=== PATIENT | male | born 1955 | race Caucasian/White ===

== ENCOUNTER 2021-10-31 13:48 | Outpatient (CLI) | payer BC, SELFPAY | END 2021-10-31 13:49 | disposition home or self-care (01) | LOC: ANHAUDIO 13:49 | PROVIDERS: PCP Internal Medicine; Visit Provider Otolaryngology | DX: H93.13 Tinnitus, bilateral (principal) | CPT/HCPCS: 92557; 92567 ==

== ENCOUNTER 2021-11-21 10:30 | Outpatient (RCR) | payer BC, SELFPAY | END 2021-12-31 15:47 | disposition home or self-care (01) | LOC: ANHDMC 10:30 | PROVIDERS: PCP Internal Medicine; Visit Provider Family Medicine | DX: E11.9 Type 2 diabetes mellitus without complications (principal); Z71.3 Dietary counseling and surveillance; Z71.89 Other specified counseling | CPT/HCPCS: 97804; 99199; G0108 ==

== ENCOUNTER → 2022-03-28 10:19 | Outpatient (CLI) | payer BC, SELFPAY ==
--- NOTE | ~2022-03-28 | XR_ITS ---
EXAMINATION: XR sacrum coccyx min 2V DATE: 03/28/2022 10:34 INDICATION: Sacrococcygeal disorders, not elsewhere classified. TECHNIQUE: 4 views of the sacrum and coccyx were obtained. COMPARISON: None. FINDINGS: Bone alignment is normal. No fracture. There is severe lumbar spondylosis. There is mild os teoarthritis of the sacroiliac joints. IMPRESSION: 1. Severe lumbar spondylosis. 2. Mild osteoarthritis of the sacroiliac joints. Reviewed, dictated and finalized at location A.
== END ==
PROVIDERS: PCP Family Medicine; Visit Provider Family Medicine
DX: M53.3 Sacrococcygeal disorders, not elsewhere classified (principal); M47.816 Spondylosis without myelopathy or radiculopathy, lumbar region
CPT/HCPCS: 72220

== ENCOUNTER 2022-04-03 08:00 | Outpatient (RCR) | payer BC, SELFPAY | END 2022-04-03 23:59 | disposition home or self-care (01) | LOC: ANHAUDIO 08:00 | PROVIDERS: PCP Family Medicine; Visit Provider Family Medicine | DX: Z46.1 Encounter for fitting and adjustment of hearing aid (principal) | CPT/HCPCS: 99199; V5261 ==

== ENCOUNTER → 2022-08-19 13:25 | Outpatient (CLI) | payer BC, SELFPAY ==
--- NOTE | ~2022-08-19 | XR_ITS ---
EXAMINATION: XR shoulder LT min 2V DATE: 08/19/2022 13:41 INDICATION: Bilateral shoulder pain TECHNIQUE: 1. AP internally and externally rotated and transscapular Y views of the left shoulder were obtained. 2. AP internally and externally rotated and transscapular Y views of the right shoulder were obtained . COMPARISON: None FINDINGS: Normal alignment at both shoulders. No fracture.Relatively symmetric moderate osteoarthritis at the bilateral glenohumeral and acromioclavicular joints. There are moderate-sized inferiorly directed ost eophytes at the acromioclavicular joints as well as bilateral moderate sized subacromial spurs. There is narrowing of the bilateral subacromial spaces which measures approximate 5 mm on the left and 3 m m on the right. Visualized portions of the lungs are clear. Soft tissues are unremarkable. IMPRESSION: 1. Moderate bilateral glenohumeral and acromioclavicular osteoarthritis. 2. Constellation of findings including inferiorly directed acromioclavicular osteophytes, subacromial spurs and narrowing of the subacromial spaces on both the left and right which suggests the likeliho od of bilateral supraspinatus tendon tears. Reviewed, dictated and finalized at location A. IMPRESSION: 1. Moderate bilateral glenohumeral and acromioclavicular osteoarthritis. 2. Constellation of findings including inferiorly directed acromioclavicular os teophytes, subacromial spurs and narrowing of the subacromial spaces on both th e left and right which suggests the likelihood of bilateral supraspinatus tendo n tears.
--- NOTE | ~2022-08-19 | XR_ITS ---
EXAM: XR shoulder RT min 2V DATE: 08/19/2022 13:41 HISTORY: M25.511 - Pain in right shoulder . COMPARISON: None available. FINDINGS: Decreased mineralization. No fracture or dislocation. No lytic or blastic lesion. Superior humeral head migration as can be seen with cuff pathology. Acromial enthesopathy. Moderate degenerat gwendolyn change at the AC joint and glenohumeral joint. No erosion or periosteal change. Soft tissues with in normal limits. IMPRESSION: Moderate AC joint hypertrophy and glenohumeral osteoarthritis. Likely rotator cuff tear. Reviewed, dictated and finalized at location K. IMPRESSION: Moderate AC joint hypertrophy and glenohumeral osteoarthritis. Like ly rotator cuff tear.
== END ==
PROVIDERS: PCP Family Medicine; Visit Provider Family Medicine
DX: M25.511 Pain in right shoulder (principal); M25.512 Pain in left shoulder; M19.012 Primary osteoarthritis, left shoulder; M19.011 Primary osteoarthritis, right shoulder; M25.712 Osteophyte, left shoulder; M25.711 Osteophyte, right shoulder
CPT/HCPCS: 73030

== ENCOUNTER 2022-09-24 09:27 | Outpatient (CLI) | payer BC, SELFPAY ==
[2022-09-24 20:53] LABS: Alanine Aminotransferase 31 U/L (6-50); Albumin Level 4.3 g/dL (3.5-5.1); Alkaline Phosphatase 63 U/L (38-126); Anion Gap 7 mmol/L (8-16); Aspartate Amino Transferase 45 U/L (17-59); Bilirubin,Total 0.6 mg/dL (0.2-1.3); Blood Urea Nitrogen 12 mg/dL (9-20); Carbon Dioxide 29 mmol/L (22-30); Chloride 102 mmol/L (98-107); Cholesterol 177 mg/dL (0-200); Estimated Glomerular Filt Rate > 60; Glucose 89 mg/dL (65-110); HDL Direct 50 mg/dL; Potassium 4.2 mmol/L (3.4-5.0); Sodium 138 mmol/L (137-145); Triglycerides 72 mg/dL (<150)
[2022-09-24 21:09] LABS: LDL Cholesterol Direct 94 mg/dL
[2022-09-24 21:15] LABS: Prostate Specific Antigen 2.3 ng/mL (< OR = 4.0)
[2022-09-24 22:13] LABS: Hemoglobin A1C 5.5 % (<5.7)
== END 2022-09-24 09:28 | disposition home or self-care (01) ==
LOC: ANHGOSHLAB 09:28
PROVIDERS: PCP Family Medicine; Visit Provider Family Medicine
DX: E78.5 Hyperlipidemia, unspecified (principal); Z13.228 Encounter for screening for other metabolic disorders; Z12.5 Encounter for screening for malignant neoplasm of prostate; E11.9 Type 2 diabetes mellitus without complications
CPT/HCPCS: 36415; 80053; 80061; 83036; 84153; G0103

== ENCOUNTER 2023-09-29 10:32 | Outpatient (CLI) | payer BC, SELFPAY ==
[2023-09-29 12:29] LABS: Alanine Aminotransferase 41 U/L (6-50); Albumin Level 4.3 g/dL (3.5-5.1); Alkaline Phosphatase 77 U/L (38-126); Anion Gap 9 mmol/L (8-16); Aspartate Amino Transferase 44 U/L (17-59); Bilirubin,Total 0.6 mg/dL (0.2-1.3); Blood Urea Nitrogen 14 mg/dL (9-20); Calcium 9.3 mg/dL (8.4-10.2); Carbon Dioxide 29 mmol/L (22-30); Chloride 102 mmol/L (98-107); Cholesterol 152 mg/dL (0-200); Estimated Glomerular Filt Rate > 60; Glucose 101 mg/dL (65-110); HDL Direct 39 mg/dL; Potassium 4.1 mmol/L (3.4-5.0); Sodium 140 mmol/L (137-145); Triglycerides 87 mg/dL (<150)
[2023-09-29 12:41] LABS: LDL Cholesterol Direct 85 mg/dL
[2023-09-29 12:51] LABS: Hemoglobin A1C 5.2 % (<5.7)
[2023-09-29 12:58] LABS: Prostate Specific Antigen 4.6 ng/mL (< OR = 4.0)
== END 2023-09-29 10:33 | disposition home or self-care (01) ==
LOC: ANHGOSHLAB 10:34
PROVIDERS: PCP Family Medicine; Visit Provider Family Medicine
DX: E11.9 Type 2 diabetes mellitus without complications (principal); E78.5 Hyperlipidemia, unspecified; Z13.228 Encounter for screening for other metabolic disorders; Z12.5 Encounter for screening for malignant neoplasm of prostate
CPT/HCPCS: 36415; 80053; 80061; 83036; 84153; G0103

== ENCOUNTER 2023-10-29 08:39 | Outpatient (CLI) | payer BC, SELFPAY ==
[2023-10-29 19:46] LABS: Prostate Specific Antigen 4.2 ng/mL (< OR = 4.0)
== END 2023-10-29 08:40 | disposition home or self-care (01) ==
LOC: ANHGOSHLAB 08:41
PROVIDERS: PCP Family Medicine; Visit Provider Family Medicine
DX: R97.20 Elevated prostate specific antigen [PSA] (principal); Z12.5 Encounter for screening for malignant neoplasm of prostate
CPT/HCPCS: 36415; 84153

== ENCOUNTER 2024-03-12 08:36 | Outpatient (CLI) | payer BC, SELFPAY ==
[2024-03-12 19:07] LABS: Prostate Specific Antigen 4.6 ng/mL (< OR = 4.0)
== END 2024-03-12 08:37 | disposition home or self-care (01) ==
LOC: ANHGOSHLAB 08:37
PROVIDERS: PCP Family Medicine; Visit Provider Family Medicine
DX: Z12.5 Encounter for screening for malignant neoplasm of prostate (principal); R97.20 Elevated prostate specific antigen [PSA]
CPT/HCPCS: 36415; 84153; G0103

== ENCOUNTER 2024-03-12 08:45 | Outpatient (CLI) | payer BC, SELFPAY ==
--- NOTE | ~2024-03-12 | XR_ITS ---
Right Knee Technique: AP, lateral, and oblique views were obtained. Clinical History: Pain Findings: No fracture or dislocation is seen. There is medial compartment narrowing. There is mild de generative spurring of the medial lateral joint lines. There is moderate patellofemoral compartment s purring.. Soft tissues are unremarkable. No joint effusion is seen. Impression: Degenerative change, as above. Reviewed, dictated and finalized at location M. Impression: Degenerative change, as above.
== END 2024-03-12 08:46 ==
LOC: GOSHIMG 08:46
PROVIDERS: PCP Family Medicine; Visit Provider Family Medicine
DX: M17.11 Unilateral primary osteoarthritis, right knee (principal)
CPT/HCPCS: 73564

== ENCOUNTER 2024-03-17 08:27 | Outpatient (CLI) | payer BC, SELFPAY ==
[2024-03-22 09:43] LABS: Kit Draw Collected
== END 2024-03-17 08:28 | disposition home or self-care (01) ==
LOC: ANHGOSHLAB 08:29
PROVIDERS: PCP Family Medicine; Visit Provider Family Medicine
DX: M17.11 Unilateral primary osteoarthritis, right knee (principal)
CPT/HCPCS: 36415

== ENCOUNTER 2024-06-10 13:43 | Outpatient (CLI) | payer BC, SELFPAY ==
--- NOTE | ~2024-06-10 | CT_ITS ---
EXAMINATION: CT LE RT wo con DATE: 06/10/2024 14:23 INDICATION: Unilateral primary osteoarthritis of right knee. Preoperative planning. TECHNIQUE: Computed tomography (CT) of the right lower limb was performed without intravenous contras t. Automated exposure control and iterative reconstruction technique were employed. The dose-length p roduct was 1733.96 mGy-cm. COMPARISON: Right knee radiographs 03/12/2024 FINDINGS: There is moderate right hip osteoarthritis. Right knee demonstrates varus angulation. No fr acture. There is severe osteoarthritis of medial compartment, mild osteoarthritis of lateral compartm ent, and moderate osteoarthritis of patellofemoral compartment. There is a small knee joint effusion. IMPRESSION: 1. Severe right knee osteoarthritis. 2. Small right knee joint effusion. 3. Moderate hip osteoarthritis. Reviewed, dictated and finalized at location A.
== END 2024-06-10 13:44 | disposition home or self-care (01) ==
LOC: ANHIMG 13:45
PROVIDERS: PCP Family Medicine; Visit Provider Orthopaedic Surgery
DX: M17.11 Unilateral primary osteoarthritis, right knee (principal); M25.461 Effusion, right knee; M16.11 Unilateral primary osteoarthritis, right hip
CPT/HCPCS: 73700

== ENCOUNTER 2024-06-16 13:37 | Outpatient (CLI) | payer BC, SELFPAY ==
--- NOTE | 2024-06-16 14:26 | ECG_ITS ---
Test Date: 2024-06-16 14:37:01 Measurements Intervals [place] Rate: 81 P: 42 MN: 146 QRS: -15 QRSD: 93 T: 34 QT: 365 QTc: 425 Interpretive Statements SINUS RHYTHM LOW QRS VOLTAGE IN PRECORDIAL LEADS [QRS DEFLECTION < 1.0 mV IN CHEST LEADS] NONSPECIFIC ST & T-WAVE ABNORMALITY No previous ECG available for comparison Electronically Signed On 06-17-2024 09:49:15 CDT by Shon Ojeda M.D.
[2024-06-16 14:42] LABS: Hematocrit 47.4 % (42.0-52.0); Hemoglobin 16.1 g/dL (14.0-18.0)
[2024-06-16 14:47] LABS: Albumin Level 4.6 g/dL (3.5-5.1); Estimated Glomerular Filt Rate 60; Glucose 94 mg/dL (65-110)
[2024-06-16 15:19] LABS: Hemoglobin A1C 5.6 % (<5.7)
== END 2024-06-16 13:38 | disposition home or self-care (01) ==
PROVIDERS: PCP Family Medicine; Visit Provider Orthopaedic Surgery
DX: M17.11 Unilateral primary osteoarthritis, right knee (principal); E11.9 Type 2 diabetes mellitus without complications
CPT/HCPCS: 36415; 82040; 82565; 82947; 83036; 85014; 85018; 93005

== ENCOUNTER 2024-07-28 07:53 | Outpatient (CLI) | payer BC, SELFPAY ==
[2024-07-28 09:14] LABS: Basophils Percent Auto 0.6 % (0.2-1.2); Eosinophils Absolute Auto 0.2 K/mm3 (0-0.3); Eosinophils Percent Auto 2.8 % (0-4.4); Hematocrit 46.3 % (42.0-52.0); Hemoglobin 15.5 g/dL (14.0-18.0); Immature Granulocyte Absolute 0.03 K/mm3 (0.00-0.031); Immature Granulocyte Percent A 0.4 % (0-0.5); Lymphocytes Absolute Auto 1.67 K/mm3 (0.9-3.2); Lymphocytes Percent Auto 24.6 % (18.3-44.2); Mean Corpuscular HGB Conc 33.5 g/dl (32-36); Mean Corpuscular Hemoglobin 31.3 pg (26-34); Mean Corpuscular Volume 93.3 fl (80-100); Mean Platelet Volume 10.9 fl (7.4-10.4); Monocytes Absolute Auto 0.7 K/mm3 (0.1-0.6); Monocytes Percent Auto 10.3 % (2.6-8.5); Neutrophils Absolute Auto 4.2 K/mm3 (1.3-6.7); Neutrophils Percent Auto 61.3 % (45.5-73.1); Platelet Count Result 149 k/mm3 (150-375); Red Blood Count 4.96 M/mm3 (4.6-6.20); Red Cell Distribution Width 12.5 % (11.5-14.5); White Blood Count 6.8 K/mm3 (4.5-10.0)
[2024-07-28 09:24] LABS: Albumin Level 4.2 g/dL (3.5-5.1); Estimated Glomerular Filt Rate > 60; Glucose 98 mg/dL (65-110)
[2024-07-28 10:34] LABS: MRSA (PCR) NOT DETECTED (NOT DETECTE)
[2024-07-28 11:24] LABS: Urine Cotinine NEGATIVE
== END 2024-07-28 07:54 | disposition home or self-care (01) ==
LOC: ANHSURGERY 07:57
PROVIDERS: PCP Family Medicine; Visit Provider Orthopaedic Surgery
DX: M17.11 Unilateral primary osteoarthritis, right knee (principal); E11.9 Type 2 diabetes mellitus without complications; Z01.818 Encounter for other preprocedural examination
CPT/HCPCS: 80307; 82040; 82565; 82947; 85025; 87641

== ENCOUNTER 2024-08-05 14:30 | Outpatient (RCR) | payer BC, SELFPAY ==
--- NOTE | 2024-06-21 13:51 | OPREHPOC ---
Outpatient Therapy Plan of Care This is a Multidisciplinary Plan of Care that may contain components documented by all disciplines (PT, OT, and ST.) PT Problem 1 PT Problem #1 Knowledge Deficit PT Goal 1 Goal / Goal Update [place] with HEP Target Visit 4 PT Problem 2 PT Problem #2 Impaired Range of Motion PT Goal 1 Goal / Goal Update Achieve terminal knee extension for even gait Target Visit 8 PT Goal 2 Goal / Goal Update Patient will improve R knee flexion to 120 degrees to improve functional mobility Target Visit 8 PT Problem 3 PT Problem #3 Pain PT Goal 1 Goal / Goal Update Report no pain greater than 2/10 with initiation of gait Target Visit 8
--- NOTE | 2024-06-21 13:52 | PTOPEVAL1 ---
Assessment and note entered by Danilo Johns, PT Evaluation Information Assessment Status Evaluation Diagnosis M17.77 ICD-10 Condition Codes (PT) M25.561 Onset 6 years ago Subjective Information Reports that he has good days and bad days. Pain is pretty bad throughout day but always worse when he sits for a while. All of the pain is in the knee and nothing outside of that right now. He has no history of replacement but would be open to it BRADEN. Not currently doing any exercises outside of biking on stationary bike. No current follow up with MD at this time. Reported Pain Level Pain Score 6: Self Report Assessment PT Clinical Summary Patient presents with decreased functional knee ROM, knee pain, and altered gait. Notable loss of mobility in wilfrido hips compounding on structural knee issues. Patient will benefit from skilled therapy to address these deficits for improved functional mobility and functional use of knee. Plan of Care Interventions Electrical Stimulation,Hot Pack/Cold Pack,Manual Therapy,Neuro Re-education,Therapeutic Activities, Therapeutic Exercise PT Services Indicated Yes Treatment Frequency and 1-2x/week for 8 visits Duration These treatments will address the objective and functional deficits as defined above. The patient will be advanced safely and appropriately in order for the patient to progress towards his/her prior level of function. Additional exercises will be introduced and as well as a comprehensive home exercise program upon discharge, if needed, ?to ensure carryover of functional gains achieved in the clinic. This treatment plan has been reviewed and agreement upon by the patient.
--- NOTE | 2024-08-05 15:09 | PTOPDC ---
Assessment and note entered by Kelli Reyes, PT Discharge Report Assessment Status Discharge Diagnosis M17.77 ICD-10 Condition Codes (PT) M25.561 Onset 6 years ago Subjective Information went to the pre surgery joint class yesterday; did not have any questions about his surgery up coming Aug 31; Reported Pain Level Pain Score Self Report Additional Pain Score Comments pain range in the past week 2-8/10 increase pain: sit to standing and initially walking decrease pain: ice, rest, is not taking any pain meds for his knee Assessment PT Clinical Summary Yogesh has received 8 PT sessions. Compared to the initial evaluation: knee flexion has increased to 110'; knee extension is (-5'); continues to have pain in his knee with sit to standing and walking; Education completed for HEP and pain control. He is scheduled for TKR on Aug 31. The goals were partially met. Discharge PT. He is to continue with the LE strengthening and stretching, to prep for TKR. Plan of Care PT Services Indicated No
== END 2024-08-06 08:30 | disposition home or self-care (01) ==
LOC: ANHPT 14:30
PROVIDERS: PCP Family Medicine; Visit Provider Orthopaedic Surgery
DX: M17.11 Unilateral primary osteoarthritis, right knee (principal)
CPT/HCPCS: 97014; 97110; 97140; 97161; 97530; G0283

== ENCOUNTER 2024-08-31 02:22 | Day surgery (SDC) | payer BC, SELFPAY ==
[2024-07-28 07:51] VITALS: BP 116/72; PULSE 66; RESP 16; TEMP 36.7; O2SAT 96; BMI 29.5
--- NOTE | 2024-07-28 07:56 | PC.NURSE ---
Report to the Outpatient Waiting Room, entrance under the green pavilion located off [facility], at time ___8:00AM____ on date ___08/31/24____. Planned Procedure Time: ___10:00AM .? Time changes happen often and if your time is changed the preop area will call you the afternoon before. - You and your visitor will be asked to self-screen and do not enter if you have any COVID symptoms. Please call surgeon if you need to reschedule. - A mask is optional within the hospital at this time. Patients may have clear liquids (water, carbonated beverages, clear teas, apple juice) until 3 hours prior to surgery with a maximum of 20 ounces. - No food from midnight until time of surgery and no smoking. Take only the following medications with a SIP of water on the morning of surgery: NONE DO NOT STOP ANY OF YOUR OTHER PRESCRIPTION MEDICATIONS PRIOR TO SURGERY EXCEPT THE FOLLOWING Medications to discontinue per physician ____HOLD ALL NSAIDS 7 DAYS PRE-OP PER DR MELCHOR- LAST DOSE 08/23/24. HOLD ALL VITAMINS/SUPPLEMENTS 3 DAYS PRE-OP PER ANESTHESIA- LASt DOSE 08/27/24.____ Please no make-up, nail ghanaian, hairspray, perfume, deodorant, or body powder the day of surgery.? No jewelry (including any body piercings) or valuables the day of surgery, leave them at home.? Please take a shower or bath the night before, or the morning of, surgery with an antibacterial soap.? Wear comfortable, loose fitting clothing.? - Jewelry must be removed prior to entering the operating room.? Rings and piercings that are not removed may be cut off. - The hospital will not accept responsibility for valuables.? - Please leave all valuables, including medications, at home the day of surgery. If you are going home after surgery, a licensed cement truck driver must drive you home.? - NO public transportation without another adult if you receive anesthesia. - We recommend that an adult stay with you for 24 hours following discharge. - We also recommend that you do not drive, make important decision, drink alcoholic beverages, or take any drugs that were not prescribed by your health care provider for at least 24 hours after your discharge time. Follow any additional instructions given to you from your surgeon. Telephone instructions given to PATIENT and asked if any additional questions and then verbalized understanding. Patient advised to call surgeon office or pre surgery nurse liaison [phone] if any additional questions.
[2024-08-31] VITALS (11 sets, daily range): BP systolic 103–126; BP diastolic 57–72; PULSE 69–87; RESP 12–20; TEMP 35.8–36.8; O2SAT 93–100
--- NOTE | ~2024-08-31 | XR_ITS ---
EXAMINATION: [id number] DATE: 08/31/2024 13:02 INDICATION: Right knee arthroplasty. Postop. TECHNIQUE: 2 views of right knee were obtained. COMPARISON: None. FINDINGS: There is a total right knee arthroplasty with patellar resurfacing in near-anatomic alignme nt. No fracture. There is gas in the knee joint and soft tissues, consistent with recent surgery. IMPRESSION: 1. Total right knee arthroplasty in near-anatomic alignment. Reviewed, dictated and finalized at location B.
--- NOTE | 2024-08-31 07:11 | WPDHPUPDATE1 ---
History and Physical Update Update Date/Time: 08/31/24 07:11 History and Physical has been reviewed, including an updated exam of the patient. There are NO changes in the patient's condition. Risks, benefits, and alternatives have been discussed and questions answered. Patient agrees to proceed with procedure.
--- NOTE | 2024-08-31 07:12 | WPDHPUPDATE1 ---
History and Physical Update Update Date/Time: 08/31/24 07:12 History and Physical has been reviewed, including an updated exam of the patient. There are NO changes in the patient's condition. Risks, benefits, and alternatives have been discussed and questions answered. Patient agrees to proceed with procedure.
[2024-08-31] MEDS: LACTATED RINGERS 1,000 ML 30 ML IV CONT ×2 (08:15→12:45)
[2024-08-31] MEDS: TRANEXAMIC ACID 1,000MG/ISO100 1,000 MG/100 ML BAG 200 MG IVPB (08:51)
[2024-08-31] MEDS: ACETAMINOPHEN 500 MG TABLET 1000 MG PO (08:51)
--- NOTE | 2024-08-31 10:08 | P.HP_ITS ---
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 Worse with standing and walking. Has a severe limp. Difficulty getting his socks and shoes on. Take stairs 1 at a time. Cortisone injection worked very well for 1- 2 weeks. Pain is primarily medial. No numbness, tingling, or other associated symptoms. Examination? Normal height and weight. Significant limp.? Moderate bilateral varus deformity most pronounced on the right. No synovitis. No instability. Medial collateral ligament is tight. Significant pop with Varus stress. Range motion 5 to 125.? Trace effusion.? No warmth or erythema. Skin without lesions.? No distal edema or varicosities. Hip exam benign. Neurovascular status intact. Diagnostics Radiographs reveal severe medial compartment degenerative changes in the knee.? Grade 4 joint space narrowing medially. Diffuse changes including the lateral and patellofemoral joints. Calcification just distal to the medial joint line. Impression? Severe knee arthritis is limiting function and quality of life.? He retired a couple years ago due to the knee pain. Excellent but temporary relief from an injection. We discussed the risks, benefits, and alternatives to surgery. Proceed with right total knee arthroplasty. Will use custom implant. Review of Systems Review of Systems: All systems reviewed & are unremarkable except as noted in HPI and below PMFSH Past Medical History Medical History Allergic rhinitis Hyperlipidemia Obesity Family History Family History Sibling Family history of rheumatoid arthritis Family history of pancreatic cancer Father Family history of emphysema Social History Social History Smoking status: Never smoker Alcohol intake: never Substance use: never Lack of Transportation: No Lack of Food: Never True Current Housing: I Have Housing Concerned About Future Housing: No Difficulty Paying Gas/Electric Bills: No Difficulty Paying for Meds: No Currently Unemployed: No Education: High School Diploma/GED Difficulty w/ Childcare or Family Care: No Living arrangements: with family Additional living arrangements comments: Spiritual care concerns: No Meds Home Medications and Allergies Home Medications Medication Instructions Recorded Confirmed Type multivitamin with minerals-folic 1 tablet PO DAILY 03/12/24 08/31/24 History acid 400 mcg-lycopene 370 mcg tablet (One-A-Day Men's 50 Plus) lovastatin 20 mg tablet 20 mg PO DAILY #90 tabs 07/02/24 08/31/24 Rx ibuprofen 200 mg tablet 400 mg PO Q6H PRN Pain 07/28/24 08/31/24 History loratadine 10 mg tablet (Claritin) 10 mg PO DAILY 07/28/24 08/31/24 History Allergies Allergy/AdvReac Type Severity Reaction Status Date / Time Penicillins Allergy Unknown UNKNOWN Verified 08/31/24 08:47 Vital Signs Vital Signs - 24 hr 08/31/24 08:30 Temperature 36.1 C L Pulse Rate 69 Respiratory Rate 18 Blood Pressure 115/72 Pulse Oximetry 98 Oxygen Delivery Room Air Assessment and Plan Assessment and plan (1) Arthritis of right knee: Code(s): M17.11 - Unilateral primary osteoarthritis, right knee Status: Acute Assessment and Plan: Severe knee arthritis is limiting function and quality of life.? He retired a couple years ago due to the knee pain. Excellent but temporary relief from an injection. Proceed with right total knee arthroplasty. Will use custom implant.
--- NOTE | 2024-08-31 10:08 | WPDANESEPPF ---
Anes - Initial Pre Proc Eval Procedure: Operation Date: 08/31/24 10:00 Proposed Procedures p Right Custom Total Knee Arthroplasty - Herbert Bonner MD Date/Time: 08/31/24 10:08 Surgeon: Herbert Bonner MD Pre Op Diagnosis: Prim OA Right Knee Patient Data Age: 69 Gender: M Height: 1.74 m Weight: 85.1 kg Last Vital Signs Temp 97.0 F L 08/31/24 08:30 Pulse 69 08/31/24 08:30 Resp 18 08/31/24 08:30 BP 115/72 08/31/24 08:30 Pulse Ox 98 08/31/24 08:30 O2 Del Method Room Air 08/31/24 08:30 Allergies Allergy/AdvReac Type Severity Reaction Status Date / Time Penicillins Allergy Unknown UNKNOWN Verified 08/31/24 08:47 Home Medications Medication Instructions Recorded Confirmed Type multivitamin with minerals-folic 1 tablet PO DAILY 03/12/24 08/31/24 History acid 400 mcg-lycopene 370 mcg tablet (One-A-Day Men's 50 Plus) lovastatin 20 mg tablet 20 mg PO DAILY #90 tabs 07/02/24 08/31/24 Rx ibuprofen 200 mg tablet 400 mg PO Q6H PRN Pain 07/28/24 08/31/24 History loratadine 10 mg tablet (Claritin) 10 mg PO DAILY 07/28/24 08/31/24 History Laboratory Tests 08/31/24 08:22 Blood Type A Positive Antibody Screen Pending Patient hx anesthesia problems: none Family hx anesthesia problems: none Results Review: All pre-operative results and documents have been reviewed as part of the pre-operative evaluation. [facility] Past Medical History Medical History Allergic rhinitis Hyperlipidemia Obesity Family History Family History Sibling Family history of rheumatoid arthritis Family history of pancreatic cancer Father Family history of emphysema Social History Social History Smoking status: Never smoker Alcohol intake: never Substance use: never Lack of Transportation: No Lack of Food: Never True Current Housing: I Have Housing Concerned About Future Housing: No Difficulty Paying Gas/Electric Bills: No Difficulty Paying for Meds: No Currently Unemployed: No Education: High School Diploma/GED Difficulty w/ Childcare or Family Care: No Living arrangements: with family Additional living arrangements comments: Spiritual care concerns: No Anes - Eval Final PreProcedure Day of Procedure 08/31/24 10:08 Patient weight: normal Heart: regular rate and rhythm Lungs: clear to auscultation Airway: Mallampati scale class II Neurological: alert and oriented Last oral intake: >/= 8 hours ASA classification: III Emergent: no Anesthetic plan: proceed Anesthesia type and monitoring: general LMA and standard monitoring Results Review: All pre-operative results and documents have been reviewed as part of the pre-operative evaluation. Informed Consent: The patient's anesthetic plan and its attendant risks and benefits were discussed with the patient/family/POA. Questions were solicited and answers provided to the satisfaction of the patient/family/POA.
[2024-08-31] MEDS: ceFAZolin 2 GM/D5W 50 ML 2 GM/50 ML BAG IVPB ×2 (10:17→18:17)
[2024-08-31] MEDS: SODIUM CHLORIDE 0.9% IV 37.7 ML, MORPHINE SULFATE INJ (*CRX) 2 MG, ROPivacaine HCL 1% 2... INFILTRATE (10:25)
[2024-08-31] MEDS: TRANEXAMIC ACID 1,000 MG/10 ML AMPUL 1000 MG IV PUSH (12:25)
[2024-08-31] MEDS: fentaNYL CITRATE INJ (*CRX) 100 MCG/2 ML VIAL 25 MCG IV PUSH ×4 (13:11→13:23)
--- NOTE | 2024-08-31 13:21 | W.PM.PROC2 ---
Procedure Note - Detailed Date of Procedure 08/31/24 Pre-op Diagnosis Right knee degenerative arthritis. Post-op Diagnosis Same Procedure Performed Total knee arthroplasty, right. Surgeon Herbert Bonner MD Personal Lines Account Executive Vilma Stockton PA-C Anesthesia General Findings Custom knee optimal fit. Very non-compliant soft tissues required more extensile exposure and +3 tibial bone resection. Partial PCL release. Excellent bone quality. Description of Procedure Preoperative antibiotics were given. The limb was prepped and draped in the usual sterile fashion with a well-padded tourniquet high on the thigh. The limb was exsanguinated and the tourniquet inflated to 300 mmHg. A longitudinal incision was created just medial to the patella. A trivector approach to the knee was performed. Arthrotomy was taken down through the joint capsule. No significant releases were initially taken. The femur was exposed and the F1 jig was applied. The coring tool was used to remove the cartilage for the F2 jig to sit flush with the bone. The jig was pinned and the distal cut carefully taken. Caliper measurements confirmed appropriate bony resections according to the preoperative templated plan. The F4 cutting jig for the femur was applied, at the standard rotation. The AP and anterior chamfer cuts were taken. The F5 jig was applied and the posterior chamfer cuts were taken. The tibia was prepared using the T1 jig, after removing cartilage for the jig contact points. Proper alignment was checked with the alignment len. The tibia was cut using the T1u guide. Gap balancing was performed. Gap measurements were taken and the knee was trialed. Excellent alignment and soft tissue balancing was confirmed. The posterior cruciate ligament was recessed along the proximal tibia. The patella was cut for resurfacing. Three lug holes were drilled. Meniscal remnants were removed. The trial components were assembled. Excellent range of motion and proper soft tissue balancing were confirmed throughout the full range of motion. Patellar tracking was excellent. The knee was copiously irrigated periodically throughout the procedure. The real implants were cemented into position. Excess cement was carefully removed. The wound was closed in layers with interrupted #1 Vicryl suture, 2-0 strata fix suture, 0 strata fix suture, 2-0 strata fix suture. Steri-Strips placed on the skin with the knee flexed. Sterile bulky dressing applied. The patient was brought to the recovery room in stable condition. There were no complications. Physician critical care physician assistant, Vilma Stockton PA-C, required for surgery; including patient positioning, draping, tissue retraction, maintaining instrument position, cement removal, wound closure, and dressing placement. Implants Conform[employer] Custom total knee arthroplasty. Cemented. Cruciate retaining. 6A insert. 41 mm oval patella. Estimated Blood Loss 100 Drains No Complications No immediate complications Condition Stable Disposition PACU [facility] Billing Surgery - Charge Forward: Surgery Billing
[2024-08-31] MEDS: ACETAMINOPHEN 325 MG TABLET 650 MG PO ×3 (14:28→23:31)
[2024-08-31] MEDS: SENNA/DOCUSATE SODIUM TABLET 2 TAB PO (18:17)
[2024-08-31] MEDS: predniSONE 5 MG TABLET PO (18:17)
[2024-08-31] MEDS: MELOXICAM 7.5 MG TABLET PO (18:17)
[2024-08-31] MEDS: FAMOTIDINE 20 MG TABLET PO (20:08)
[2024-08-31] MEDS: ASPIRIN 81 MG ENTERIC TABLET PO (20:08)
[2024-09-01] MEDS: ceFAZolin 2 GM/D5W 50 ML 2 GM/50 ML BAG IVPB ×2 (01:13→09:20)
[2024-09-01 03:24] VITALS: BP 109/69; PULSE 73; RESP 18; TEMP 36.6; O2SAT 96
[2024-09-01] MEDS: ACETAMINOPHEN 325 MG TABLET 650 MG PO (05:11)
[2024-09-01 07:25] LABS: Basophils Percent Auto 0.2 % (0.2-1.2); Eosinophils Percent Auto 0.2 % (0-4.4); Hemoglobin 13.2 g/dL (14.0-18.0); Immature Granulocyte Absolute 0.06 K/mm3 (0.00-0.031); Immature Granulocyte Percent A 0.5 % (0-0.5); Lymphocytes Absolute Auto 1.51 K/mm3 (0.9-3.2); Lymphocytes Percent Auto 12.3 % (18.3-44.2); Mean Corpuscular Hemoglobin 31.3 pg (26-34); Mean Corpuscular Volume 94.8 fl (80-100); Mean Platelet Volume 10.8 fl (7.4-10.4); Monocytes Absolute Auto 1.1 K/mm3 (0.1-0.6); Monocytes Percent Auto 8.9 % (2.6-8.5); Neutrophils Absolute Auto 9.6 K/mm3 (1.3-6.7); Neutrophils Percent Auto 77.9 % (45.5-73.1); Platelet Count Result 155 k/mm3 (150-375); Red Blood Count 4.22 M/mm3 (4.6-6.20); Red Cell Distribution Width 12.6 % (11.5-14.5); White Blood Count 12.3 K/mm3 (4.5-10.0)
[2024-09-01 07:56] LABS: Anion Gap 6 mmol/L (4-12); Blood Urea Nitrogen 14 mg/dL (9-20); Calcium 8.4 mg/dL (8.4-10.2); Carbon Dioxide 27 mmol/L (22-30); Chloride 106 mmol/L (98-107); Estimated CRCL calculation 77 ml/min; Estimated Glomerular Filt Rate > 60; Glucose 102 mg/dL (65-110); Potassium 3.8 mmol/L (3.4-5.0); Sodium 139 mmol/L (137-145)
[2024-09-01 08:00] VITALS: BP 122/67; PULSE 67; RESP 18; TEMP 36.4; O2SAT 96
--- NOTE | 2024-09-01 08:00 | PM.DS ---
DS: Admitting Diagnosis Discharge Date 09/01/24 Admitting Diagnosis Knee arthritis DS: Discharge Diagnosis Discharge Diagnosis (1) Status post total right knee replacement: Code(s): Z96.651 - Presence of right artificial knee joint Status: Acute Assessment and Plan: Postop day 1: Right total knee arthroplasty. Patient tolerated procedure well. No complications. Pain manageable with pain medication. No numbness or tingling. We had a lengthy discussion regarding postoperative wound care, limitations, expectations, and exercises. Patient shows good understanding. He has had initial physical therapy and is tolerating it well. DVT prophylaxis: 81 mg baby aspirin b.i.d. for 14 days. Pain medication: Percocet. Prednisone. Meloxicam. Patient has followup appointment with Dr. Bonner in 3 weeks. DS: Summary Hospital Course Reason for hospitalization: Total knee arthroplasty Hospital Course: Patient tolerated procedure well. Has had initial PT/OT. Status at Discharge Functional status at discharge: uses cane/walker Overall status at discharge: patient is progressing back to baseline Time Spent with Patient Time attestation: Total time spent providing and/or coordinating discharge services: Exam Narrative: Overweight 69 y/o Male. Resting comfortably in bed. Wearing compression socks bilaterally. Dressing intact with no drainage. Mild swelling. Minimal ecchymosis. No erythema. No hematoma. Range of motion limited due to pain. Calf nontender. Neurologic status intact. No varicosities. Distal pulses palpable. Fires quad. DS: Data Data Completed and Pending Labs on day of discharge: Labs from last 24 hours 09/01/24 08/31/24 06:39 08:22 WBC 12.3 H RBC 4.22 L Hgb 13.2 L Hct 40.0 L MCV 94.8 MCH 31.3 MCHC 33.0 RDW 12.6 Plt Count 155 MPV 10.8 H Immature Gran % (Auto) 0.5 Neut % (Auto) 77.9 H Lymph % (Auto) 12.3 L [place] % (Auto) 8.9 H Eos % (Auto) 0.2 Baso % (Auto) 0.2 Lymph # (Auto) 1.51 [place] # (Auto) 1.1 H Eos # (Auto) 0.0 Baso # (Auto) 0.0 Abs Immat Gran (auto) 0.06 H Absolute Neuts (auto) 9.6 H Absolute Nucleated RBC 0.000 Nucleated RBC % 0.0 Sodium 139 Potassium 3.8 Chloride 106 Carbon Dioxide 27 Anion Gap 6 BUN 14 Creatinine 0.80 Estim Creat Clear Calc 77 Estimated GFR > 60 Glucose 102 Calcium 8.4 Blood Type A Positive Antibody Screen Negative Discharge Plan Discharge Patient Disposition: Home, Self-Care Discharge Instructions: See green instruction sheets Stand Alone Forms: General Discharge Instructions Follow-up/Referrals: Vilma Stockton PA [Physician Central Office Repairer Supervisor] - Discharge Medications: New meloxicam 15 mg tablet 15 mg PO DAILY Qty: 30 0RF Rx Instructions: Cut in half. Take 1/2 in morning and 1/2 at night. Take with food. Stop if stomach upset. aspirin 81 mg tablet,delayed release (DR/EC) 81 mg PO BID 14 Days Qty: 28 0RF oxycodone-acetaminophen 5-325 mg tablet 1 - 2 tablet PO Q4-6H PRN (Reason: pain) 7 Days Qty: 30 0RF prednisone 5 mg tablet 5 mg PO DAILY 21 Days Qty: 21 0RF Continued One-A-Day Men's 50 Plus 400-370 mcg tablet 1 tablet PO DAILY loratadine [Claritin] 10 mg Tablet 10 mg PO DAILY lovastatin 20 mg tablet 20 mg PO DAILY Qty: 90 1RF Discontinued ibuprofen 200 mg Tablet 400 mg PO Q6H PRN (Reason: Pain)
[2024-09-01] MEDS: FAMOTIDINE 20 MG TABLET PO (08:29)
[2024-09-01] MEDS: ASPIRIN 81 MG ENTERIC TABLET PO (08:29)
[2024-09-01] MEDS: SENNA/DOCUSATE SODIUM TABLET 2 TAB PO (08:29)
[2024-09-01] MEDS: LOVASTATIN 20 MG TABLET PO (08:30)
[2024-09-01] MEDS: LORATADINE 10 MG TABLET PO (08:30)
[2024-09-01] MEDS: MELOXICAM 7.5 MG TABLET PO (08:30)
[2024-09-01] MEDS: oxyCODONE/ACETAMINOPHEN (*CRX) 5-325 MG TABLET 1 TABLET PO (08:31)
[2024-09-01 09:38] VITALS: O2SAT 95
== END 2024-09-01 10:45 | disposition home or self-care (01) ==
LOC: ANHSURGERY 10:19 → ANH3MEDSUR 13:42
PROVIDERS: Physician Assistant Surgical; PCP Family Medicine; Visit Provider Orthopaedic Surgery
PROC: (CPT 27447; principal; 2024-08-31 10:00)
DX: M17.11 Unilateral primary osteoarthritis, right knee (principal); E78.5 Hyperlipidemia, unspecified
CPT/HCPCS: 27447; 36415; 73560; 80048; 85025; 86850; 86900; 86901; 97110; 97116; 97161; 97165; 97530; 97535; A9270; C1713; C1776; J0171; J0690; J1100; J1885; J2003; J2250; J2270; J2405; J2704; J2795; J3010; J7030; J7120; J7512

== ENCOUNTER 2024-10-06 12:30 | Outpatient (RCR) | payer BC, SELFPAY ==
--- NOTE | 2024-09-14 13:33 | OPREHPOC ---
Outpatient Therapy Plan of Care This is a Multidisciplinary Plan of Care that may contain components documented by all disciplines (PT, OT, and ST.) PT Problem 1 PT Problem #1 Knowledge Deficit PT Goal 1 Goal / Goal Update *indep with HEP * good gait pattern with cane Target Visit 8 PT Problem 2 PT Problem #2 Pain PT Goal 1 Goal / Goal Update 1* pt report pain rating of 4/10 at worst 2* LE functional scale rating of 55% limitation in activity level Target Visit 8 PT Problem 3 PT Problem #3 Impaired Flexibility PT Goal 1 Goal / Goal Update increase R knee active ROM to improve gait, stair and transfer skills: sitting active 1* extension 0' 2* flexion 125' Target Visit 8 PT Problem 4 PT Problem #4 Impaired Functional Mobility PT Goal 1 Goal / Goal Update 1* up/down 12 steps with one hand railing and alternate step pattern 2* 2 minute walking test distance of 450' with cane 3* pt report going out short distances in community Target Visit 8
--- NOTE | 2024-09-14 13:33 | PTOPEVAL1 ---
Assessment and note entered by Kelli Reyes, PT Evaluation Information Assessment Status Evaluation ICD-10 Condition Codes (PT) R26.9,Weakness R53.1,Z47.1 Onset 08-31-24 Subjective Information doing good getting around the house with the wheeled walker; doing 20 reps of the exercises from the hospital, do 2x/day and sometimes not get to 20 if too swollen or hurting; Activity level: prior to surgery-- retired, active home repairs; home with Reported Pain Level Pain Score Self Report Additional Pain Score Comments pain range in the past few days 0-6/10; increase pain: with exercises and walking decrease pain: sit, rest, ice; oxycodone PRN/ not every day, tylenol sleeping is not disrupted due to knee pain Assessment PT Clinical Summary Yogesh is 2 weeks s/p R TKR. He is very motivated and been doing his HEP and walking in his home, resting, ice and elevation of his leg. LE functional scale self rating of 71% limitation in activity level. Prior to surgery, he was active and did not use an assistive device. With the evaluation: R knee ROM: active in sitting (-15') to 85' and with passive stretching: (-5') to 100'; 2 minute walking test distance of 350' with wheeled walker; on 4 steps requires bilateral hand rails and single step pattern; he is performing his HEP 15-20 reps. Skilled PT services are indicated for modalities to decrease pain; therapeutic exercises to increase R knee ROM and strength; education for HEP and gait training to lesser assistive device. Plan of Care Interventions Electrical Stimulation,Hot Pack/Cold Pack,Manual Therapy,Neuro Re-education,Patient/Caregiver Education,Therapeutic Activities,Therapeutic Exercise,Other Other Interventions taping PT Services Indicated Yes Treatment Frequency and 2x/wk for 8 visits Duration These treatments will address the objective and functional deficits as defined above. The patient will be advanced safely and appropriately in order for the patient to progress towards his/her prior level of function. Additional exercises will be introduced and as well as a comprehensive home exercise program upon discharge, if needed, ?to ensure carryover of functional gains achieved in the clinic. This treatment plan has been reviewed and agreement upon by the patient.
--- NOTE | 2024-10-06 13:21 | PTOPDC ---
Assessment and note entered by Kelli Reyes, PT Discharge Report Assessment Status Discharge ICD-10 Condition Codes (PT) R26.9,Weakness R53.1,Z47.1 Onset 08-31-24 Subjective Information knee is still tight and stiff; is doing everything he needs to do at home-- all light chores; doing all the exercises; is using the cane all the time; going to go to [place] tomorrow for vacation; ready to be finished with therapy. Reported Pain Level Pain Score Self Report Pain Score Self Report Additional Pain Score Comments pain range in the past 0-4/10; posterior knee hurts with activity and bending; decrease pain: ice no longer taking any pain meds Assessment PT Clinical Summary Yogesh has received 8 PT sessions. Compared to the initial evaluation: pain has decreased to 0-4/10; self assessment with LE functional scale rating from 71 to 28% limitation in activity level; 2 minute walking test distance from 320' with wheeled walker to 450' without device; on stairs, is indep- without hand railing and alternate step pattern; continues to have edema over R knee, with tenderness over superior patella, quad muscle; education completed for HEP ROM of R knee: active in sitting (-5') to 115; supine knee extension stretch to 0'; The goals were partially achieved. Discharge PT services. He is to continue with his HEP. Plan of Care PT Services Indicated No
== END 2024-10-06 13:31 | disposition home or self-care (01) ==
LOC: ANHPT 12:30
PROVIDERS: PCP Family Medicine; Visit Provider Orthopaedic Surgery
DX: Z47.1 Aftercare following joint replacement surgery (principal); Z96.651 Presence of right artificial knee joint
CPT/HCPCS: 97110; 97116; 97140; 97161; 97530

== ENCOUNTER 2025-04-29 08:16 | Outpatient (CLI) | payer BC, SELFPAY ==
[2025-04-29 18:04] LABS: Basophils Percent Auto 0.6 % (0.2-1.2); Eosinophils Absolute Auto 0.2 K/mm3 (0-0.3); Eosinophils Percent Auto 3.7 % (0-4.4); Hematocrit 45.3 % (42.0-52.0); Hemoglobin 14.8 g/dL (14.0-18.0); Immature Granulocyte Absolute 0.01 K/mm3 (0.00-0.031); Immature Granulocyte Percent A 0.2 % (0-0.5); Lymphocytes Absolute Auto 1.19 K/mm3 (0.9-3.2); Lymphocytes Percent Auto 25.7 % (18.3-44.2); Mean Corpuscular HGB Conc 32.7 g/dl (32-36); Mean Corpuscular Hemoglobin 30.3 pg (26-34); Mean Corpuscular Volume 92.8 fl (80-100); Mean Platelet Volume 11.2 fl (7.4-10.4); Monocytes Absolute Auto 0.5 K/mm3 (0.1-0.6); Monocytes Percent Auto 10.4 % (2.6-8.5); Neutrophils Absolute Auto 2.8 K/mm3 (1.3-6.7); Neutrophils Percent Auto 59.4 % (45.5-73.1); Platelet Count Result 154 k/mm3 (150-375); Red Blood Count 4.88 M/mm3 (4.6-6.20); Red Cell Distribution Width 12.8 % (11.5-14.5); White Blood Count 4.6 K/mm3 (4.5-10.0)
[2025-04-29 18:14] LABS: Iron 138 ug/dL (49-181)
[2025-04-29 18:22] LABS: Alanine Aminotransferase 24 U/L (6-50); Alkaline Phosphatase 63 U/L (38-126); Anion Gap 7 mmol/L (4-12); Aspartate Amino Transferase 39 U/L (17-59); Bilirubin,Total 0.6 mg/dL (0.2-1.3); Blood Urea Nitrogen 13 mg/dL (9-20); Calcium 9.1 mg/dL (8.4-10.2); Carbon Dioxide 28 mmol/L (22-30); Chloride 105 mmol/L (98-107); Cholesterol 167 mg/dL (0-200); Estimated Glomerular Filt Rate > 60; Glucose 80 mg/dL (65-110); HDL Direct 44 mg/dL; Potassium 4.3 mmol/L (3.4-5.0); Sodium 140 mmol/L (137-145); Total Protein 6.5 g/dL (6.3-8.2); Triglycerides 66 mg/dL (<150)
[2025-04-29 18:23] LABS: Percent Iron Saturation 49 % (20-50)
[2025-04-29 18:36] LABS: LDL Cholesterol Direct 89 mg/dL
[2025-04-29 18:39] LABS: Hemoglobin A1C. 5.5 % (<5.7); Vitamin D 25 Hydroxy 44.1 ng/mL
[2025-04-29 19:36] LABS: Folic Acid > 20.0 ng/mL (2.76->20)
== END 2025-04-29 08:17 | disposition home or self-care (01) ==
LOC: ANHGOSHLAB 08:18
PROVIDERS: PCP Family Medicine; Visit Provider Family Medicine
DX: Z00.00 Encounter for general adult medical examination without abnormal findings (principal); D64.9 Anemia, unspecified; E78.5 Hyperlipidemia, unspecified; I10 Essential (primary) hypertension; R73.9 Hyperglycemia, unspecified; E55.9 Vitamin D deficiency, unspecified
CPT/HCPCS: 36415; 80053; 80061; 82306; 82607; 82728; 82746; 83036; 83540; 83550; 84443; 85025

== ENCOUNTER 2025-05-03 15:01 | Outpatient (CLI) | payer BC, SELFPAY ==
--- NOTE | ~2025-05-03 | XR_ITS ---
Left Shoulder Technique: AP and scapular Y views were obtained. Clinical History: Pain Findings: No fracture or dislocation is seen. Osseous alignment is anatomic. The glenohumeral and acr omioclavicular joints demonstrate moderate to advanced degenerative changes. Soft tissues are unremar kable. Impression: Moderate to severe degenerative change of the glenohumeral and acromioclavicular joints. Reviewed, dictated and finalized at location . Impression: Moderate to severe degenerative change of the glenohumeral and acromioclavicula r joints.
== END 2025-05-03 15:02 | disposition home or self-care (01) ==
LOC: GOSHIMG 15:02
PROVIDERS: PCP Family Medicine; Visit Provider Family Medicine
DX: M19.012 Primary osteoarthritis, left shoulder (principal)
CPT/HCPCS: 73030

== ENCOUNTER 2025-07-11 09:00 | Outpatient (RCR) | payer BC, SELFPAY ==
--- NOTE | 2025-06-03 13:25 | OPREHPOC ---
Outpatient Therapy Plan of Care This is a Multidisciplinary Plan of Care that may contain components documented by all disciplines (PT, OT, and ST.) PT Problem 1 PT Problem #1 Knowledge Deficit PT Goal 1 Goal / Goal Update 1* independent with HEP 2* correct body mechanics and posture with exercises Target Visit 8 PT Problem 2 PT Problem #2 Pain PT Goal 1 Goal / Goal Update 1* pt report pain of L shoulder 3/10 at worst Target Visit 8 PT Problem 3 PT Problem #3 Impaired Flexibility PT Goal 1 Goal / Goal Update increase flexibility of L shoulder, to improve use of L arm: 1* IR- reaching behind back, palm to sacrum 2* ER- reach to back of head, palm to back of head Target Visit 8 PT Problem 4 PT Problem #4 Impaired Strength PT Goal 1 Goal / Goal Update * increase strength of L shoulder, to improve self care tasks and home care: in standing active L x 5 reps: 1* flexion to 150' 2* abduction to 130' 3* IR- reach behind back, palm to sacrum 4* ER- reaching to back of head, palm to back of head Target Visit 8
--- NOTE | 2025-06-03 13:26 | PTOPEVAL1 ---
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 He reports chronic issues with bilateral shoulder pain and OA, with recent increase with hanging dry wall and holding with L arm. x ray report states moderate to severe degenerative changes of GH and A-C joints. Self assessment with Quick DASH rating of 23% limitation in activity level. He is R hand dominant but is ambidextrous. With the evaluation: decreased strength of L shoulder, with all motions due to pain in shoulder ; most pain with flexion and abduction of shoulder ; rounded shoulder posture; testing positive for rotator cuff involvement. Skilled PT services are indicated for modalities to decrease pain; therapeutic exercises to increase strength and improve posture and position of GH joint with education for HEP and posture/ body mechanics. Plan of Care Interventions Electrical Stimulation,Hot Pack/Cold Pack,Manual Therapy,Neuro Re-education,Patient/Caregiver Education,Therapeutic Activities,Therapeutic Exercise,Ultrasound,Other Other Interventions taping PT Services Indicated Yes Treatment Frequency and 1-2x/wk for 8 visits Duration These treatments will address the objective and functional deficits as defined above. The patient will be advanced safely and appropriately in order for the patient to progress towards his/her prior level of function. Additional exercises will be introduced and as well as a comprehensive home exercise program upon discharge, if needed, ?to ensure carryover of functional gains achieved in the clinic. This treatment plan has been reviewed and agreement upon by the patient.
--- NOTE | 2025-07-11 09:39 | OPREHPOC ---
Outpatient Therapy Plan of Care This is a Multidisciplinary Plan of Care that may contain components documented by all disciplines (PT, OT, and ST.) PT Problem 1 PT Problem #1 Knowledge Deficit PT Goal 1 Goal / Goal Update 1* independent with HEP 2* correct body mechanics and posture with exercises 07-11-25 d/c goals met Target Visit 8 Progress Met PT Problem 2 PT Problem #2 Pain PT Goal 1 Goal / Goal Update 1* pt report pain of L shoulder 3/10 at worst 07-11-25 d/c goal not met, 5/10 at worst Target Visit 8 Progress Not Met PT Problem 3 PT Problem #3 Impaired Flexibility PT Goal 1 Goal / Goal Update increase flexibility of L shoulder, to improve use of L arm: 1* IR- reaching behind back, palm to sacrum 2* ER- reach to back of head, palm to back of head 07-11-25 d/c goal 1 met; #2- palm to behind ear Target Visit 8 Progress Partially Met PT Problem 4 PT Problem #4 Impaired Strength PT Goal 1 Goal / Goal Update * increase strength of L shoulder, to improve self care tasks and home care: in standing active L x 5 reps: 1* flexion to 150' 2* abduction to 130' 3* IR- reach behind back, palm to sacrum 4* ER- reaching to back of head, palm to back of head 07-11-25 d/c goal 3 met Target Visit 8 Progress Partially Met
--- NOTE | 2025-07-11 09:39 | PTOPDC ---
Assessment and note entered by Kelli Reyes, PT Assessment Status Discharge ICD-10 Condition Codes (PT) Pain in left shoulder M25.512 Onset about 1 month ago Subjective Information saw luiza bonner--was told I needed total shoulder replacement; I am going to hold off on surgery as long as I can; some days are better than other days with the shoulder; been working on the exercises at home; ready to be done with therapy. Reported Pain Level Pain Score 0: Self Report Additional Pain Score Comments pain range of 0-5/10 in the past week increase pain: reaching arm up and holding something overhead decrease pain: rest not taking any pain meds; shoulder does not disrupt sleeping Assessment PT Clinical Summary Yogesh has received a total of 8 PT sessions. Today's assessment: pain range in the past week 0- 5/10; self assessment with Quick DASH rating of 38% limitation in activity level; L shoulder active ROM: flexion 110', abduction 125'; IR- reach behind back, palm to sacrum and ER- reach to back of head, palm to behind his ear. All active motions increase his pain. Education completed for HEP and pain control. He has returned to doing all of his usual home tasks, with monitoring pain and keeping his shoulder in lower ROM to avoid pain increase. The goals were partially met. Discharge PT. He is to continue with the HEP and rest PRN for pain management. Plan of Care PT Services Indicated No
== END 2025-07-11 10:16 | disposition home or self-care (01) ==
LOC: ANHPT 09:00
PROVIDERS: PCP Family Medicine; Visit Provider Family Medicine
DX: M25.512 Pain in left shoulder (principal); G89.29 Other chronic pain
CPT/HCPCS: 97110; 97161; 97530

== ENCOUNTER 2025-10-21 02:54 | Day surgery (SDC) | payer BC, SELFPAY ==
[2025-10-04 14:09] VITALS: BMI 29.1
--- OUTSIDE RECORDS SUMMARY | 2025-10-21 02:57 | XMS_ITS | Clinical Summary ---
Author Organization [facility] Address [address] [place] [address] Care Team Providers Care Air Brush Decorator Name Role Phone Unavailable Primary Care Provider Unavailabl e Social History Tobacco Use Types Packs/Day Years Used Date Smoking Tobacco: Never Assessed Sex and Gender Information Value Date Recorded Sex Assigned at Not on file Legal Sex Male 7:46 PM CDT Gender Identity Not on file Sexual Orientation Not on file Plan of Treatment Health Maintenance Due Date Last Done Comments Colorectal Cancer Screening Colonoscopy (10 Years) 1957 Hepatitis C 1975 DTaP, Tdap and Td Vaccines ( 1 - Tdap) 1976 Pneumococcal Vaccine: 50+ Ye ars (1 of 1 - PCV) 2007 Zoster Vaccines (1 of 2) 2007 COVID-19 Vaccine (1 - 2024-2 6 season) 2025 Influenza Adult (#1) 2025 RSV Immunization or 60+ Years (1 - 1-dose 75+ series) 2032 Hepatitis A Vaccines Aged Out No long er eligible based on patient's age to complete this topic Meningococcal B Vaccine Aged Out No l onger eligible based on patient's age to complete this topic Meningococcal Vaccine Aged Out No brittany zelalem eligible based on patient's age to complete this topic RSV Immunizations Under 20 Months Aged Out No longer eligible based on patient's age to complete this topic
--- OUTSIDE RECORDS SUMMARY | 2025-10-21 02:57 | XMS_ITS | Clinical Summary ---
Author Organization [facility] lin Address [address] [place] [address] Care Team Providers Care Beating Machine Operator Name Role Phone No, Pcp MASSEUR/MASSEUSE Primary Care Provider Unavailabl e Social History Tobacco Use Types Packs/Day Years Used Date Smoking Tobacco: Never Assessed Sex and Gender Information Value Date Recorded Sex Assigned at Not on file Legal Sex Male 7:06 PM EDT Gender Identity Not on file Sexual Orientation Not on file Plan of Treatment Not on file Medical Devices Not on file Insurance Care Teams Beating Machine Operator Relationship Specialty Start Date End Date No, Pcp, MASSEUR/MASSEUSE N/A Do not use PCP - General Family Medicine 04/26/21
[2025-10-21 08:40] VITALS: BP 131/81; PULSE 68; RESP 16; TEMP 36.4; O2SAT 98; BMI 28.8
[2025-10-21] MEDS: LACTATED RINGERS 1,000 ML 150 ML IV CONT (08:50)
--- NOTE | 2025-10-21 09:40 | P.PNAN_ITS ---
Anes - Initial Pre Proc Eval Procedure: Operation Date: 10/21/25 10:00 Proposed Procedures p Screening Colonoscopy - Onel Crystal MD Date/Time: 10/21/25 09:40 Surgeon: Onel Crystal MD Pre Op Diagnosis: Personal history of colon polyps, unspecified Patient Data Age: 70 Gender: M Height: 1.73 m Weight: 86 kg Last Vital Signs Temp 97.5 F L 10/21/25 08:40 Pulse 68 10/21/25 08:40 Resp 16 10/21/25 08:40 BP 131/81 10/21/25 08:40 Pulse Ox 98 10/21/25 08:40 O2 Del Method Room Air 10/21/25 08:40 Allergies Allergy/AdvReac Type Severity Reaction Status Date / Time Penicillins Allergy Unknown UNKNOWN Verified 10/21/25 08:39 Home Medications ?Medication ?Instructions ?Recorded ?Confirmed ?Type multivitamin with minerals-folic 1 tablet PO DAILY 08/2610/21/25 History acid 400 mcg-lycopene 370 mcg tablet (One-A-Day Men's 50 Plus) loratadine 10 mg tablet (Claritin) 10 mg PO DAILY 07/0510/21/25 History tamsulosin 0.4 mg capsule 0.4 mg PO BID 05/03/2510/21 History lovastatin 20 mg tablet 20 mg PO DAILY #90 tabs 06/0310/21/25 Rx Patient hx anesthesia problems: none Family hx anesthesia problems: none Results Review: All pre-operative results and documents have been reviewed as part of the pre- operative evaluation. [facility]LY [facility] Past Medical History Medical History Rotator cuff arthropathy of left shoulder History of colon polyps Tinnitus of both ears Type 2 diabetes mellitus Arthritis of right knee Obesity Hyperlipidemia Allergic rhinitis Surgical History Surgical History Status post total right knee replacement (~08/31/24) Custom Conformis History of tonsillectomy (~1964) History of right inguinal hernia repair (~1975) Family History Family History Sibling Family history of rheumatoid arthritis Family history of pancreatic cancer Father Family history of emphysema Social History Social History Smoking status: Never smoker Alcohol intake: never Substance use: never Lack of Transportation: No Lack of Food: Never True Current Housing: I Have Housing Concerned About Future Housing: No Difficulty Paying Gas/Electric Bills: No Difficulty Paying for Meds: No Currently Unemployed: No Education: High School Diploma/GED Difficulty w/ Childcare or Family Care: No Living arrangements: with family Additional living arrangements comments: Spiritual care concerns: No Anes - Eval Final PreProcedure Day of Procedure 10/21/25 09:40 Patient weight: overweight Lungs: normal air movement Airway: Mallampati scale class II Neurological: alert and oriented Last oral intake: >/= 8 hours ASA classification: II Emergent: no Anesthetic plan: proceed Anesthesia type and monitoring: general GIVS and standard monitoring Results Review: All pre-operative results and documents have been reviewed as part of the pre- operative evaluation. Hyperlipidemia, no longer DM after wt loss. Informed Consent: The patient's anesthetic plan and its attendant risks and benefits were discussed with the patient/family/POA. Questions were solicited and answers provided to the satisfaction of the patient/family/POA.
--- NOTE | 2025-10-21 09:51 | PM.IMHP2 ---
H&P: HPI History of Present Illness Date/Time: 10/21/25 09:51 Chief Complaint: History of colon polyps Narrative: The patient has a history of colonic polyps, the last colonoscopy was 5 years ago. Review of Systems Review of Systems: All systems reviewed & are unremarkable except as noted in HPI and below PMFSH Past Medical History Medical History Rotator cuff arthropathy of left shoulder History of colon polyps Tinnitus of both ears Type 2 diabetes mellitus Arthritis of right knee Obesity Hyperlipidemia Allergic rhinitis Surgical History Surgical History Status post total right knee replacement (~08/31/24) Custom Conformis History of tonsillectomy (~1964) History of right inguinal hernia repair (~1975) Family History Family History Sibling Family history of rheumatoid arthritis Family history of pancreatic cancer Father Family history of emphysema Social History Social History Smoking status: Never smoker Alcohol intake: never Substance use: never Lack of Transportation: No Lack of Food: Never True Current Housing: I Have Housing Concerned About Future Housing: No Difficulty Paying Gas/Electric Bills: No Difficulty Paying for Meds: No Currently Unemployed: No Education: High School Diploma/GED Difficulty w/ Childcare or Family Care: No Living arrangements: with family Additional living arrangements comments: Spiritual care concerns: No Meds Home Medications and Allergies Home Medications ?Medication ?Instructions ?Recorded ?Confirmed ?Type multivitamin with minerals-folic 1 tablet PO DAILY 03/12/24 10/21/25 History acid 400 mcg-lycopene 370 mcg tablet (One-A-Day Men's 50 Plus) loratadine 10 mg tablet (Claritin) 10 mg PO DAILY 07/28/24 10/21/25 History tamsulosin 0.4 mg capsule 0.4 mg PO BID 05/03/25 10/21/25 History lovastatin 20 mg tablet 20 mg PO DAILY #90 tabs 06/20/25 10/21/25 Rx Allergies Allergy/AdvReac Type Severity Reaction Status Date / Time Penicillins Allergy Unknown UNKNOWN Verified 10/21/25 08:39 Vital Signs Vital Signs - 24 hr 10/21/25 08:40 Temperature 97.5 F L Pulse Rate 68 Respiratory Rate 16 Blood Pressure 131/81 Pulse Oximetry 98 Oxygen Delivery Room Air Exam Const: General: cooperative and healthy appearing Resp: Effort & Inspection: normal respiratory effort and able to speak in complete sentences Auscultation: clear to auscultation bilaterally Cardio: Rate: regular rate Rhythm: regular rhythm GI: Inspection: normal to inspection GI Palp: No No hepatosplenomegaly present Auscultation: normal bowel sounds Rectal Exam: deferred Skin: General skin exam: normal color Psych: Appearance: grossly normal Mental Status: mental status grossly normal Assessment and Plan Assessment and plan (1) History of colonic polyps: Code(s): Z86.0100 - Personal history of colon polyps, unspecified Status: Acute Assessment and Plan: The patient is deemed a good candidate for the procedure. Consent signed. Will proceed. Prior Studies I have reviewed the following patient records and this information was taken into consideration when formulating the assessment and plan.: previous labs, previous ER visits, previous hospitalizations and previous clinic visits
[2025-10-21] MEDS: SIMETHICONE ORAL SUSPENSION 20 MG/0.3 ML 30 ML BOTTLE 0.6 ML IRRIGATION (10:07)
[2025-10-21 10:19] VITALS: BP 104/67; PULSE 67; RESP 15; O2SAT 98
[2025-10-21 10:29] VITALS: BP 110/68; PULSE 67; RESP 18; O2SAT 97
[2025-10-21 10:39] VITALS: BP 118/79; PULSE 60; RESP 19; O2SAT 100
== END 2025-10-21 10:47 | disposition home or self-care (01) ==
PROVIDERS: PCP Family Medicine; Visit Provider Internal Medicine Gastroenterology
PROC: 0DJD8ZZ Inspection of Lower Intestinal Tract, Via Natural or Artificial Opening Endoscopic (ICD-10-PCS; CPT 45378; principal; 2025-10-21 10:00)
DX: Z12.11 Encounter for screening for malignant neoplasm of colon (principal); E78.5 Hyperlipidemia, unspecified; M17.11 Unilateral primary osteoarthritis, right knee; Z98.890 Other specified postprocedural states; Z86.0100 Personal history of colon polyps, unspecified; Z80.0 Family history of malignant neoplasm of digestive organs
CPT/HCPCS: 45378; J2003; J2704; J7120